=== PATIENT | female | born 1945 | race Caucasian/White ===

== ENCOUNTER → 2016-11-09 | Outpatient (CLI) | payer MEDICARE, MEDICAID ==
[~2016-11-09] MED LIST: ALBUAER3 INH; PROM1SUP7 RECTAL; THEO300T30 PO
--- NOTE | 2016-11-12 10:33 | RSPPFT ---
DATE OF PROCEDURE: 11/09/16 COMMENTS: Spirometry with FVC of 2.1, FEV1 of 1.6, FEV1/FVC ratio at 75%. There is a positive and significant response to acutely inhaled bronchodilator. IMPRESSION: 1. Decreased flow rates. 2. Element of obstruction seen on trial #2. 3. Positive response to bronchodilator treatment which puts this patient at moderately severe airways obstruction. 4. Positive response to airways obstruction.
== END ==
LOC: HRSP 07:24
PROVIDERS: ATTEND Family Medicine
DX: J44.9 Chronic obstructive pulmonary disease, unspecified (principal); R53.83 Other fatigue
CPT/HCPCS: 94060